=== PATIENT | female | born 1995 | race Caucasian/White ===

== ENCOUNTER 2021-07-23 08:54 | Emergency (ER) | payer OTHER ==
[~2021-07-23] VITALS: Ht 149.9 cm; Wt 56.7 kg
--- NOTE | 2021-07-23 09:08 | NUR ---
BIB [facility] [employer] FOR [facility]ACH[facility] S/P USING [facility]OC[facility]. HX ANXIETY, DEPRESSION, BIPOLAR DISORDER. DENIES SI. AAOX4, AMBULATORY, HR 116. ON MONITOR, GIVEN BLANKETS. AT BEDSIDE.
[2021-07-23] MEDS ORDERED: LORAZEPAM 0.5 MG TABLET ONE (09:31)
[2021-07-23] MEDS: LORAZEPAM 1 MG TABLET PO ONE (09:36)
[2021-07-23] MEDS: IV NS 0.9% 1,000 ML IV ONE (09:36)
--- NOTE | 2021-07-23 10:01 | NUR ---
Patient discharged to home in stable condition. Written and verbal after care instructions given. Patient verbalizes understanding of instruction.
--- NOTE | 2021-07-23 10:01 | NUR ---
IV removed. Catheter intact and site benign. Pressure and 4x4 applied to site. No bleeding noted.
[2021-07-23 10:06] VITALS: BP 123/100
== END 2021-07-23 09:50 | disposition home or self-care (01) ==
LOC: ER 09:00
DX: F14.10 Cocaine abuse, uncomplicated (principal); F10.10 Alcohol abuse, uncomplicated; R00.0 Tachycardia, unspecified; F41.9 Anxiety disorder, unspecified; F60.0 Paranoid personality disorder; F32.9 Major depressive disorder, single episode, unspecified; F43.10 Post-traumatic stress disorder, unspecified; Z88.0 Allergy status to penicillin; Z88.8 Allergy status to other drugs, medicaments and biological substances; Y90.9 Presence of alcohol in blood, level not specified
CPT/HCPCS: 93005; 96360; 99283; J7030